=== PATIENT | female | born 1975 | race Caucasian/White ===

== ENCOUNTER → 2024-07-14 | Day surgery (SDC) | payer BC ==
--- NOTE | 2024-07-19 12:37 | MM ---
Reason for Exam: Post Procedure Mammogram. Risk Values: Nicki 5 year model risk: 0.7%. NCI Lifetime model risk: 5.9%. Tissue Density: Left: The breasts are heterogeneously dense, which may obscure small masses. Pathology Description: Location: retroareolar. T4 butterfly clip The ultrasound guided cyst aspiration procedure was explained to the patient. The risks, benefits, alternatives were discussed. An informed consent was then obtained. A time out was performed at . The patient was placed in supine positioning for imaging and for the procedure. The overlying skin was prepped with betadine and sterilely draped in usual sterile fashion. 10 ml 1% lidocaine was used as anesthetic into the skin and deeper breast tissue up to area of concern in the retroareolar left breast. Under ultrasound guidance, an 12-gauge spinal needle was advanced into the cyst and aspiration yielded 0.5 mL of pink-colored fluid. The fluid was labeled and sent for laboratory analysis. A microclip . Was left in lesion. Good hemostasis was obtained with direct pressure. Postprocedure mammogram: The patient was transferred to mammography for physician ordered post procedure mammogram for clip placement verification. The clip is in the expected region of the biopsy. The patient tolerated the procedure well without any immediate complication. The patient was discharged to home in stable condition. Impression: Successful ultrasound guided cyst aspiration left breast. Cytology pending. [facility], , 07/14/2024 12:43 PM. Pathology Results: Result: Benign. Pathology and radiology were reviewed. Findings are concordant. LEFT BREAST, ULTRASOUND GUIDED ASPIRATE: Virtually acellular specimen consisting of blood, non-diagnostic. Overall Assessment: Benign Assessment: MG diagnostic mammo LT wo CAD. - Left: Benign, BI-RAD 2. Management: Diagnostic Breast Ultrasound of the left breast in 6 months. Electronically signed and approved by: Eddie Lux M.D. Radiologis
== END ==
LOC: RADUSWWP 10:00
PROVIDERS: ATTEND Obstetrics & Gynecology
DX: N60.02 Solitary cyst of left breast (principal)
CPT/HCPCS: 88305; 77065; 76942; 19000; A4648